=== PATIENT | male | born 1940 | race Caucasian/White ===

== ENCOUNTER 2017-10-10 09:02 | Day surgery (SDC) | payer OTHER, MEDICARE ==
[~2017-10-10 09:02] MED LIST: Sodium Chloride 0.9% 5 ML Syringe FLUSH PRN
[2017-10-10] MEDS ORDERED: Propofol 200 MG/20 ML SDV ONE (09:03)
[2017-10-10] MEDS ORDERED: Midazolam 1 MG/ML 2 ML SDV ONE (09:03)
[2017-10-10] MEDS ORDERED: Lidocaine 2% 5 ML SDV ONE (09:30)
[2017-10-10] MEDS ORDERED: EPINEPHrine 1:10,000 1 MG/10 ML Syringe ONE (09:33)
[2017-10-10] MEDS: Lactated Ringers 1,000 ML IV SCH (09:36)
[2017-10-10] MEDS ORDERED: Midazolam 1 MG/ML 2 ML SDV IV ONE (10:35)
[2017-10-10] MEDS ORDERED: Propofol 200 MG/20 ML SDV IV ONE (10:35)
[2017-10-10] MEDS ORDERED: fentaNYL 100 MCG/2 ML SDV IV ONE (10:35)
[2017-10-10] MEDS: EPINEPHrine 1:10,000 1 MG/10 ML Syringe ONE (10:55)
--- NOTE | 2017-10-10 11:02 | PCM.OPNOTE ---
- General Post-Op/Procedure Note Date of Surgery/Procedure: 10/10/17 Operative Procedure(s): Upper GI endoscopy and biopsy Findings: The patient was found to have mild antral gastritis and question of prepyloric ulcer. Biopsy was taken. Pre Op Diagnosis: Dysphagia and epigastric pain Post-Op Diagnosis: Mild antral gastritis and suspected prepyloric ulcer. Anesthesia Technique: MAC Primary Surgeon: Tia Fernandes Complications: None Condition: Good Free Text/Narrative:: INFORMED CONSENT: Patient is here today for elective upper GI endoscopy. All aspects of this procedure have been discussed with the patient. All possible complications also, including possibility of perforation, infection, pain, bleeding, numbness of the throat, swallowing difficulty and unknown complications. In the event of perforation the patient may need surgical exploration to repair the defect. The patient understands fully well. Patient did not have any further questions for me at the end of my interview. The patient wishes for me to proceed. INSTRUMENT USED: Video gastroscope ANESTHESIA: [MAC] ASA CLASSIFICATION: [2] Indication: Dysphagia PROCEDURE PERFORMED: [Upper gastrointestinal endoscopy and biopsy] PHARYNX: Normal. ESOPHAGUS: Normal. Proximal: Normal. Middle: Normal. Lower: Normal. GE Junction: Normal. STOMACH: Normal. Cardia: Normal. Fundus: Normal. Lesser Curvature: Normal. Greater Curvature: Normal. Antrum: Mild antral gastritis and question prepyloric ulcer. Pylorus: Normal. DUODENUM: Normal. First Part: Normal. Second Part: Normal. Third Part: Normal. RETROFLEXION: Normal. BIOPSY: None. TOLERANCE: Excellent. COMPLICATIONS: None. Mild antral gastritis and question prepyloric ulcer
[2017-10-10] MEDS: Iopamidol 612 MG/ML 75 ML Bottle IV ONE (14:49)
[2017-10-10] MEDS: Sodium Chloride 0.9% 50 ML IV SCH (14:50)
== END 2017-10-10 13:10 | disposition home or self-care (01) ==
LOC: KA.SDS 09:02
PROVIDERS: ATTEND Family Medicine
DX: K29.70 Gastritis, unspecified, without bleeding (principal); B96.81 Helicobacter pylori [H. pylori] as the cause of diseases classified elsewhere; E66.9 Obesity, unspecified; I10 Essential (primary) hypertension; J42 Unspecified chronic bronchitis; Z68.31 Body mass index [BMI] 31.0-31.9, adult; Z79.899 Other long term (current) drug therapy
CPT/HCPCS: 36415; 70491; 86308; 87081; 87430; 87496; 88305; J0171; J2250; J2704; J3010; J7050; J7120; Q9967

== ENCOUNTER 2017-12-27 09:55 | Day surgery (SDC) | payer OTHER, MEDICARE ==
[~2017-12-27 09:55] MED LIST changes: +Lactated Ringers 1,000 ML IV SCH
[2017-12-27] MEDS: Phenylephrine 10% Ophth Soln 5 ML Bot EYERT SCH ×3 (10:09→10:43)
[2017-12-27] MEDS ORDERED: Gatifloxacin 0.5% Ophth Soln 2.5 ML Bot EYERT SCH (10:15)
[2017-12-27] MEDS: Cyclopentolate 1% Opth Soln 2 ML Bottle EYERT SCH ×3 (10:22→10:56)
[2017-12-27] MEDS ORDERED: Balanced Salt Solution Ophth Irrig 15 ML Bottle EYERT ONE (11:24)
[2017-12-27] MEDS ORDERED: Water For Irrigation,Sterile 1,500 ML Container IRR ONE (11:24)
[2017-12-27] MEDS ORDERED: Balanced Salt Solution Plus Ophth Irrig 500 ML Bottle IOCULAR ONE (11:25)
[2017-12-27] MEDS ORDERED: EPINEPHrine 1 MG/ML SDV ONE (11:25)
[2017-12-27] MEDS ORDERED: Dexamethasone/Neomycin/Polymyxin B Ophth Oint 3.5 GM Tube EYERT ONE (11:25)
[2017-12-27] MEDS ORDERED: Carbachol 0.01% Intraocular 1.5 ML Vial EYERT ONE (11:25)
[2017-12-27] MEDS ORDERED: Lidocaine 2% with EPINEPHrine 1:100,000 20 ML MDV INJECT ONE (11:26)
[2017-12-27] MEDS ORDERED: Hyaluronate Sodium 1% 0.85 ML Syringe IOCULAR ONE (11:26)
[2017-12-27] MEDS ORDERED: Lidocaine 1% 10 ML MDV INJECT ONE (11:26)
[2017-12-27] MEDS ORDERED: Tetracaine HCl/PF 0.5% 4 ML Bottle EYEBOTH ONE (11:27)
--- NOTE | 2017-12-28 11:13 | OR ---
DATE OF SURGERY: 12/27/2017 SURGEON: Syd Fierro MD PREOPERATIVE DIAGNOSIS: Cataract, right eye. POSTOPERATIVE DIAGNOSIS: Cataract, right eye. OPERATION PERFORMED: Phacoemulsification with posterior chamber lens insertion, right eye. HISTORY: The patient presents at this time with an increasing amount of difficulty seeing to read. The vision in the right eye is 20/50. The lens of the right eye has a 3+ cortical change and a 2+ nuclear sclerosis. 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 FINDINGS: The patient was taken to the operating room where appropriate anesthesia, sedation and monitoring were provided. A retrobulbar block was given on the right side. The eye was massaged and was found to be appropriately soft. The eye and eyelids were then prepped and draped in the usual sterile manner. A lid speculum was placed. A micro sharp blade was used to enter the anterior chamber inside the limbus superior-temporally. Xylocaine was irrigated into the eye at this site. Healon was irrigated into the eye through this site. Then using a 2.85 mm corneal blade an entry was made into the anterior chamber just inside the limbus temporally. Healon was again irrigated into the eye. Then using a cystitome, the anterior capsulorrhexis was created. The lens nucleus was hydrodissected using a 27 gauge cannula and balanced salt solution. The phacoemulsification unit was introduced through the temporal site and the Filiberto spatula through the superior temporal site. In so doing, the lens nucleus was phacoemulsified. The cortical fragments of the lens were removed using the irrigation aspiration unit. The posterior capsule was polished. Healon was irrigated into the eye. The posterior chamber lens was inserted and rotated into position inside the capsular bag. The Healon was irrigated out of the eye. Miostat was irrigated into the eye and the pupil rounded nicely. A single interrupted 10-0 Nylon suture was placed through the temporal corneal incision site. Balanced salt solution was irrigated into the eye. The wound was tested and found to be tight. Maxitrol ointment was placed into the patient's right eye. The eyelids were closed and an eye patch and moyer shield were placed. The patient left the operating room in good condition. /[id number]/MODL
== END 2017-12-27 12:17 | disposition home or self-care (01) ==
LOC: KA.SDS 09:55
PROVIDERS: ATTEND Ophthalmology
DX: H26.9 Unspecified cataract (principal); I10 Essential (primary) hypertension; K57.30 Diverticulosis of large intestine without perforation or abscess without bleeding; J44.9 Chronic obstructive pulmonary disease, unspecified; K27.9 Peptic ulcer, site unspecified, unspecified as acute or chronic, without hemorrhage or perforation; N40.0 Benign prostatic hyperplasia without lower urinary tract symptoms; E04.2 Nontoxic multinodular goiter; E66.9 Obesity, unspecified; Z68.31 Body mass index [BMI] 31.0-31.9, adult; Z79.2 Long term (current) use of antibiotics; Z79.899 Other long term (current) drug therapy
CPT/HCPCS: A9270-GY; C1780; J0171; J7120

== ENCOUNTER 2023-11-28 22:30 | Emergency (ER) | payer MEDICARE ==
[2023-11-28 22:51] LABS: BASOPHILS ABSOLUTE AUTO 0.05 10^3/uL (0.00-0.10); BASOPHILS PERCENT AUTO 0.6 % (0.0-1.0); EOSINOPHILS ABSOLUTE AUTO 0.44 10^3/uL (0.10-0.30); EOSINOPHILS PERCENT AUTO 5.2 % (1.0-3.0); HEMATOCRIT 24.7 % (40.0-52.0); HEMOGLOBIN 8.1 g/dL (13.0-17.0); IMMATURE GRAN ABSOLUTE AUTO 0.01 10^3/uL (0.00-0.50); IMMATURE GRAN PERCENT AUTO 0.1 % (0.0-5.0); LYMPHOCYTES ABSOLUTE AUTO 2.23 10^3/uL (1.00-4.00); LYMPHOCYTES PERCENT AUTO 26.1 % (20.0-40.0); MEAN CORPUSCULAR HEMOGLOBIN 30.7 pg (27.0-31.0); MEAN CORPUSCULAR HGB CONC 32.8 g/dL (32.0-36.0); MEAN CORPUSCULAR VOLUME 93.6 fL (82.0-92.0); MEAN PLATELET VOLUME 9.7 fL (7.4-10.4); MONOCYTES ABSOLUTE AUTO 0.68 10^3/uL (0.10-0.80); NEUTROPHILS ABSOLUTE AUTO 5.13 10^3/uL (2.50-7.00); PLATELET COUNT,PLT 180 10^3/uL (150-400); RED BLOOD CELL COUNT 2.64 10^6/uL (4.50-6.00); RED CELL DISTRIBUTION WIDTH 14.3 % (11.5-14.5); WHITE BLOOD CELL COUNT,WBC 8.54 10^3/uL (5.00-10.00)
[2023-11-28 23:08] LABS: ALANINE AMINOTRANSFERASE,ALT 27 U/L (14-63); ALBUMIN 2.96 g/dL (3.40-5.00); ALKALINE PHOSPHATASE 55 U/L (46-116); ANION GAP 15.2 mmol/L (5-15); ASPARTATE AMNIOTRANSFERASE,AST 20 U/L (15-37); BILIRUBIN TOTAL 0.3 mg/dL (0.2-1.0); BLOOD UREA NITROGEN,BUN 49 mg/dL (7-18); CALCIUM 8.5 mg/dL (8.7-10.3); CARBON DIOXIDE,CO2 23.1 mmol/L (21.0-32.0); CHLORIDE,CL 106 mmol/L (98-107); CREATININE 1.21 mg/dL (0.51-1.17); GLUCOSE RANDOM 126 mg/dL (70-140); POTASSIUM,K 4.3 mmol/L (3.5-5.1); PROTEIN TOTAL,TP 5.4 g/dL (6.4-8.2); SODIUM,NA 140 mmol/L (136-145)
[2023-11-28 23:14] LABS: ESTIMATED GFR 59 mL/min (>=60)
[2023-11-28 23:44] LABS: PROTHROMBIN TIME 10.6 SEC (9.3-12.2); PTT,PARTIAL THROMBOPLSTIN TIME 20.9 SEC (23.3-34.9)
[2023-11-28] MEDS: Heparin Sodium/D5W 250 ML IV SCH (23:45)
[2023-11-29] MEDS: Morphine 2 MG/ML SYRINGE IVPUSH ONE (00:02)
== END 2023-11-29 00:22 ==
LOC: KA.ED 22:30
DX: I21.4 Non-ST elevation (NSTEMI) myocardial infarction (principal); D64.9 Anemia, unspecified; K92.1 Melena; I10 Essential (primary) hypertension; E78.00 Pure hypercholesterolemia, unspecified; J44.9 Chronic obstructive pulmonary disease, unspecified; Z79.899 Other long term (current) drug therapy
CPT/HCPCS: 36415; 71045; 80053; 82272; 84484; 85025; 85610; 85730; 93010; 96365; 96375; 99284; 99285-25; J1644; J2270

== ENCOUNTER 2024-12-07 15:50 | Emergency (ER) | payer MEDICARE ==
[2024-12-07] MEDS: Aspirin 81 MG Tab.Chew PO ONE (16:10)
[2024-12-07 16:19] LABS: BASOPHILS ABSOLUTE AUTO 0.02 10^3/uL (0.00-0.10); BASOPHILS PERCENT AUTO 0.3 % (0.0-1.0); EOSINOPHILS ABSOLUTE AUTO 0.21 10^3/uL (0.10-0.30); EOSINOPHILS PERCENT AUTO 3.2 % (1.0-3.0); HEMATOCRIT 37.1 % (40.0-52.0); HEMOGLOBIN 12.2 g/dL (13.0-17.0); LYMPHOCYTES ABSOLUTE AUTO 1.94 10^3/uL (1.00-4.00); LYMPHOCYTES PERCENT AUTO 29.3 % (20.0-40.0); MEAN CORPUSCULAR HEMOGLOBIN 30.7 pg (27.0-31.0); MEAN CORPUSCULAR HGB CONC 32.9 g/dL (32.0-36.0); MEAN CORPUSCULAR VOLUME 93.2 fL (82.0-92.0); MEAN PLATELET VOLUME 9.8 fL (7.4-10.4); MONOCYTES ABSOLUTE AUTO 0.72 10^3/uL (0.10-0.80); MONOCYTES PERCENT AUTO 10.9 % (2.0-8.0); NEUTROPHILS ABSOLUTE AUTO 3.74 10^3/uL (2.50-7.00); NEUTROPHILS PERCENT AUTO 56.3 % (50.0-70.0); PLATELET COUNT,PLT 198 10^3/uL (150-400); RED BLOOD CELL COUNT 3.98 10^6/uL (4.50-6.00); RED CELL DISTRIBUTION WIDTH 13.5 % (11.5-14.5); WHITE BLOOD CELL COUNT,WBC 6.63 10^3/uL (5.00-10.00)
[2024-12-07] MEDS: Nitroglycerin 0.4 MG Tab.SL SL PRN (16:20)
[2024-12-07 16:30] LABS: ALBUMIN 3.19 g/dL (3.40-5.00); BILIRUBIN TOTAL 0.3 mg/dL (0.2-1.0); CALCIUM 8.8 mg/dL (8.7-10.3); CREATININE 1.12 mg/dL (0.51-1.17); EST CRCL DRUG DOSING (CG) 45.8 mL/min; PROTEIN TOTAL,TP 5.9 g/dL (6.4-8.2)
[2024-12-07] MEDS: Aspirin 81 MG Tab.Chew ONE (16:52)
[2024-12-07] MEDS: Heparin Sodium 5,000 Units/ML Vial IVPUSH ONE ×2 (18:35→18:54)
[2024-12-07] MEDS: Heparin Sodium/D5W 250 ML IV SCH (18:37)
[2024-12-07] MEDS: Heparin Sodium 5,000 Units/ML Vial ONE (18:40)
== END 2024-12-07 19:15 ==
LOC: KA.ED 15:50
DX: I24.9 Acute ischemic heart disease, unspecified (principal); I10 Essential (primary) hypertension; J44.9 Chronic obstructive pulmonary disease, unspecified; Z79.51 Long term (current) use of inhaled steroids; Z79.82 Long term (current) use of aspirin; Z79.899 Other long term (current) drug therapy
CPT/HCPCS: 36415; 71045; 80053; 84484; 85025; 85730; 93005; 96365; 99285-25; A9270-GY; J1644